=== PATIENT | female | born 1960 | race Two or more races ===

== ENCOUNTER 2021-11-20 11:15 | Observation (INO) ==
[2021-12-04] MEDS ORDERED: Lactated Ringers 1000 ml BAG 1,000 ML IV SCH (06:00)
[2021-12-04] MEDS ORDERED: Buffered Lidocaine 1% SYRIN 1 ml INTRADERM ONE (06:00)
[2021-12-04] MEDS ORDERED: Famotidine IV 10 MG/ML 2 ml VIAL (20 mg) IV ONE (06:00)
[2021-12-04] MEDS ORDERED: Dexamethasone IV 4 MG/ML VIAL 1 ml VIAL IV SLOW PU ONE (06:00)
[2021-12-04] MEDS ORDERED: Dexamethasone IV 4 MG/ML VIAL 1 ml VIAL ONE (06:27)
[2021-12-04] MEDS ORDERED: Famotidine IV 10 MG/ML 2 ml VIAL (20 mg) ONE (06:28)
[2021-12-04] MEDS ORDERED: ceFAZolin 2 GM in NS PREMIX 2 GM/100 ML BAG IVPB ONE (06:28)
[2021-12-04] MEDS ORDERED: Midazolam 2 mg/2 ml VIAL 1 mg/ml 2 ml VIAL (2 mg) ONE (07:00)
[2021-12-04] MEDS ORDERED: fentaNYL 100 mcg/2 ml 50 MCG/ML VIAL ONE ×5 (07:00→13:18)
[2021-12-04] MEDS ORDERED: Propofol 10 MG/ML 20 ML BTL ONE (07:00)
[2021-12-04] MEDS ORDERED: Lidocaine 2% PF 5 ML VIAL ONE (07:01)
[2021-12-04] MEDS ORDERED: Bupivacaine 0.25% SDV PF 10 ML VIAL INJ ONE ×2 (07:01→07:59)
[2021-12-04] MEDS ORDERED: Rocuronium 50 mg VIAL 10 mg/ml 5 ml VIAL (50 mg) ONE ×2 (07:01→09:07)
[2021-12-04] MEDS ORDERED: ceFAZolin VIAL VIAL ONE (07:01)
[2021-12-04] MEDS ORDERED: Prochlorperazine 5 mg/ml 2 ml VIAL (10 mg) IV PRN (07:25)
[2021-12-04] MEDS ORDERED: Morphine 4 MG/ML VIAL (1 ml) IV PRN (07:25)
[2021-12-04] MEDS ORDERED: Naloxone 0.4 mg VIAL 0.4 mg/ml 1 ml VIAL IV PRN (07:25)
[2021-12-04] MEDS ORDERED: BUPIVACAINE **LIPOSOME/PF 13.3 MG/ML (266MG/ 20ML) VIAL (RESTRICTED) INFIL ONE (08:00)
[2021-12-04] MEDS ORDERED: Phenylephrine 40 mcg/mL 10mL (400mcg) SYRINGE ONE (08:20)
[2021-12-04] MEDS ORDERED: Phenylephrine IV 10 MG/ML 1 ml VIAL ONE (08:56)
[2021-12-04] MEDS ORDERED: Ondansetron 4 mg VIAL 2 MG/ML 2 ml VIAL ONE (10:25)
[2021-12-04] MEDS ORDERED: Sugammadex 500 MG/5 ML 5 ml VIAL IV PUSH ONE (10:28)
[2021-12-04] MEDS ORDERED: Magnesium Hydroxide LIQ 30 ML UDC PO PRN (11:19)
[2021-12-04] MEDS ORDERED: HYDROcodone/ACETAMIN 5/325 mg TAB PO PRN (11:19)
[2021-12-04] MEDS: fentaNYL 100 mcg/2 ml 50 MCG/ML VIAL IV PRN ×3 (11:47→13:20)
[2021-12-04] MEDS: HYDROcodone/ACETAMIN 5/325 mg TAB PO PRN ×2 (15:13→20:03)
[2021-12-04] MEDS: Ondansetron 4 mg VIAL 2 MG/ML 2 ml VIAL IV PRN (16:39)
[2021-12-05] MEDS: Ondansetron 4 mg VIAL 2 MG/ML 2 ml VIAL IV PRN ×3 (00:44→17:37)
[2021-12-05] MEDS: HYDROcodone/ACETAMIN 5/325 mg TAB PO PRN ×3 (00:44→10:59)
[2021-12-05] MEDS ORDERED: oxyCODONE/Acetamin 5/325 mg TAB ONE (13:24)
[2021-12-05] MEDS: Heparin 5000 UNITS/ML 1 mL VIAL SUBCUT SCH ×2 (13:28→21:50)
[2021-12-05] MEDS ORDERED: oxyCODONE/Acetamin 5/325 mg TAB PO PRN (14:14)
[2021-12-05] MEDS: oxyCODONE/Acetamin 5/325 mg TAB PO PRN ×2 (17:39→21:56)
[2021-12-06] MEDS: Ondansetron 4 mg VIAL 2 MG/ML 2 ml VIAL IV PRN (04:55)
[2021-12-06] MEDS: Heparin 5000 UNITS/ML 1 mL VIAL SUBCUT SCH ×2 (05:43→14:58)
[2021-12-06] MEDS: oxyCODONE/Acetamin 5/325 mg TAB PO PRN ×2 (09:29→14:58)
[2021-12-06 15:23] VITALS: BP 118/75
== END 2021-12-06 19:00 | disposition home or self-care (01) ==
LOC: AA 12-04 06:05 → INTOOBSV 12-04 06:05 → SSU 12-04 13:55
PROVIDERS: ADMIT Neurological Surgery; ATTEND Neurological Surgery

== ENCOUNTER 2022-08-22 12:31 | Observation (INO) ==
[~2022-08-22 12:31] MED LIST: Buffered Lidocaine 1% SYRIN 1 ml INTRADERM ONE; Lactated Ringers 1000 ml BAG 1,000 ML IV SCH
[2022-08-22] MEDS ORDERED: Chlorhexidine MOUTHWASH 0.12% 15 ML UDC ONE (12:43)
[2022-08-22] MEDS ORDERED: ceFAZolin 2 GM PREMIX 2 GM/50 ML BAG ONE (13:10)
[2022-08-22] MEDS ORDERED: Lidocaine 2% PF 5 ML VIAL ONE (13:45)
[2022-08-22] MEDS ORDERED: Propofol 10 MG/ML 20 ML BTL ONE (13:45)
[2022-08-22] MEDS ORDERED: fentaNYL 100 mcg/2 ml 50 MCG/ML VIAL ONE ×3 (13:45→18:38)
[2022-08-22] MEDS ORDERED: Midazolam 2 mg/2 ml VIAL 1 mg/ml 2 ml VIAL (2 mg) ONE (13:45)
[2022-08-22] MEDS ORDERED: Gelfoam Sponge SIZE 100 SPONGE ONE (15:03)
[2022-08-22] MEDS ORDERED: ceFAZolin VIAL VIAL ONE (15:03)
[2022-08-22] MEDS ORDERED: Thrombin 5,000 UNITS(BOVINE) for Ultrasound Guided Pseudoaneursym ONE (15:03)
[2022-08-22] MEDS ORDERED: Thrombin 5,000 UNITS 1 APPLIC KIT - topical use - TOPICAL ONE (15:04)
[2022-08-22] MEDS ORDERED: Rocuronium 50 mg VIAL 10 mg/ml 5 ml VIAL (50 mg) ONE (15:10)
[2022-08-22] MEDS ORDERED: Acetaminophen IV 1 GM/100ML 1,000 MG/100 ML BAG IV ONE (16:30)
[2022-08-22] MEDS ORDERED: Dexamethasone IV 4 MG/ML VIAL 1 ml VIAL ONE (16:49)
[2022-08-22] MEDS ORDERED: Ondansetron 4 mg VIAL 2 MG/ML 2 ml VIAL ONE (16:49)
[2022-08-22] MEDS ORDERED: Ondansetron 4 mg VIAL 2 MG/ML 2 ml VIAL IV PRN ×2 (17:33→18:36)
[2022-08-22] MEDS ORDERED: Morphine 2 MG/ML SYRINGE IV PRN (17:38)
[2022-08-22] MEDS ORDERED: Senna TAB 8.6 mg TAB PO PRN (17:38)
[2022-08-22] MEDS ORDERED: Lactated Ringers 1000 ml BAG 1,000 ML IV SCH (18:00)
[2022-08-22] MEDS ORDERED: HYDROcodone/ACETAMIN 5/325 mg TAB PO PRN (18:36)
[2022-08-22] MEDS ORDERED: Metoclopramide 5 MG/ML VIAL (10 mg) IV PRN (18:36)
[2022-08-22] MEDS ORDERED: Naloxone 0.4 mg VIAL 0.4 mg/ml 1 ml VIAL IV PRN (18:36)
[2022-08-22] MEDS ORDERED: HYDROcodone/ACETAMIN 5/325 mg TAB ONE (18:38)
[2022-08-22] MEDS: fentaNYL 100 mcg/2 ml 50 MCG/ML VIAL IV PRN ×2 (18:41→18:50)
[2022-08-23 11:01] VITALS: BP 147/93
== END 2022-08-23 11:08 | disposition home or self-care (01) ==
LOC: SSU 12:31 → OR 12:31
PROVIDERS: ADMIT Neurological Surgery; ATTEND Neurological Surgery